=== PATIENT | male | born 1995 | race Caucasian/White ===

== ENCOUNTER 2017-01-26 02:56 | Emergency (ER) | payer BC ==
[2017-01-26] MEDS ORDERED: KETOROLAC TROMETHAMINE 30 MG/1 ML VIAL IVPUSH ONE (03:03)
--- NOTE | 2017-01-26 03:03 | PDOC ---
History of Present Illness - History of Present Illness Initial Comments: 01/26/17 04:03 The patient is a 21 year old male, with a significant past medical history of anxiety (on Clonazepam and recurrent shoulder dislocations,, who presents to the emergency department with right shoulder dislocation tonight. The patient complains of pain and inability to range his right upper extremity. He states his right upper extremity was pulled causing is to pop out. The patient states he has seen an orthopedist about his shoulder dislocations in the past and will follow-up with his orthopedist. He denies chest pain, shortness of breath, headache and dizziness. He denies fever, chills, nausea, vomit, diarrhea and constipation. He denies dysuria, frequency, urgency and hematuria. Allergies: NKDA Orthopedist: Dr. Henley <Steffanie Archer - Last Filed: 01/26/17 04:03> <Yessi Barcenas - Last Filed: 01/26/17 06:36> - General Stated Complaint: RIGHT SHOLDER DISLOCATION Time Seen by Provider: 01/26/17 02:59 Past History <Steffanie Archer - Last Filed: 01/26/17 04:03> <Yessi Barcenas - Last Filed: 01/26/17 06:36> - Past Medical History Allergies/Adverse Reactions: Allergies Allergy/AdvReac Type Severity Reaction Status Date / Time No Known Allergies Allergy Verified 01/26/17 03:13 Review of Systems - Review of Systems Able to Perform ROS?: Yes Comments:: 01/26/17 04:03 GENERAL/CONSTITUTIONAL: No fever or chills. No weakness. HEAD, EYES, EARS, NOSE AND THROAT: No change in vision. No ear pain or discharge. No sore throat. CARDIOVASCULAR: No chest pain or shortness of breath. RESPIRATORY: No cough, wheezing, or hemoptysis. GASTROINTESTINAL: No nausea, vomiting, diarrhea or constipation. GENITOURINARY: No dysuria, frequency, or change in urination. MUSCULOSKELETAL: (+) right shoulder pain s/p dislocation. No muscle swelling or pain. No neck or back pain. SKIN: No rash NEUROLOGIC: No headache, vertigo, loss of consciousness, or change in strength/ sensation. ENDOCRINE: No increased thirst. No abnormal weight change. HEMATOLOGIC/LYMPHATIC: No anemia, easy bleeding, or history of blood clots. ALLERGIC/IMMUNOLOGIC: No hives or skin allergy. <Steffanie Archer - Last Filed: 01/26/17 04:03> *Physical Exam - Vital Signs Last Vital Signs Temp Pulse Resp BP Pulse Ox 97.5 F L 94 H 19 104/68 100 01/26/17 03:13 01/26/17 03:53 01/26/17 03:53 01/26/17 03:53 01/26/17 03:53 - Physical Exam Comments: 01/26/17 04:04 GENERAL: (+) anxious. Awake, alert, and fully oriented, in no acute distress HEAD: No signs of trauma EYES: PERRLA, EOMI, sclera anicteric, conjunctiva clear ENT: Auricles normal inspection, hearing grossly normal, nares patent, oropharynx clear without exudates. Moist mucosa NECK: Normal ROM, supple, no lymphadenopathy, JVD, or masses LUNGS: Breath sounds equal, clear to auscultation bilaterally. No wheezes, and no crackles HEART: Regular rate and rhythm, normal S1 and S2, no murmurs, rubs or gallops ABDOMEN: Soft, nontender, normoactive bowel sounds. No guarding, no rebound. No masses EXTREMITIES: (+) right anterior shoulder joint dislocation. shoulder was reduced with success. no edema. No clubbing or cyanosis. No cords, erythema, or tenderness NEUROLOGICAL: Cranial nerves II through XII grossly intact. Normal speech, normal gait SKIN: Warm, Dry, normal turgor, no rashes or lesions noted. <Steffanie Archer - Last Filed: 01/26/17 04:03> Procedures - Joint Reduction Right Joint Reduction Site: right: Shoulder Pre-Procedure NV Exam: normal Conscious Sedation: Yes Anesthesia: Versed Amt. of medication administered: 4mg Procedure: Other (external rotation) Post-Procedure NV Exam: normal Complications: No Post Joint Reduction Film: joint reduced Immobilized: Yes <Yessi Barcenas - Last Filed: 01/26/17 06:36> ED Treatment Course - Medications Given in the ED: ED Medications Discontinued Medications Generic Name Dose Route Start Last Admin Trade Name Freq PRN Reason Stop Dose Admin Acetaminophen 1,000 mg 01/26/17 03:04 01/26/17 03:30 Ofirmev Injection - IVPB 01/26/17 03:05 1,000 mg ONCE ONE Administration Fentanyl 100 mcg 01/26/17 03:28 01/26/17 03:30 Sublimaze Injection - IVPUSH 01/26/17 03:29 100 mcg ONCE ONE Administration Ketorolac Tromethamine 30 mg 01/26/17 03:03 01/26/17 03:30 Toradol Injection - IVPUSH 01/26/17 03:04 30 mg ONCE ONE Administration Midazolam HCl 4 mg 01/26/17 03:28 01/26/17 03:30 Versed - IVPUSH 01/26/17 03:29 4 mg ONCE ONE Administration Sodium Chloride 1,000 ml 01/26/17 03:09 01/26/17 03:45 Normal Saline - IV 01/26/17 03:10 1,000 ml ONCE ONE Administration <Steffanie Archer - Last Filed: 01/26/17 04:03> *DC/Admit/Observation/Transfer - Attestations Scribe Attestion: 01/26/17 04:05 Documentation prepared by Steffanie Archer, acting as chief medical physicist for Yessi Barcenas MD <Steffanie Archer - Last Filed: 01/26/17 04:03> - Discharge Dispostion Admit: No <Yessi Barcenas - Last Filed: 01/26/17 06:36> Diagnosis at time of Disposition: Anterior shoulder dislocation - Discharge Dispostion Disposition: HOME Condition at time of disposition: Stable - Referrals Referrals: Krishan Cotto MD [Staff Physician] - - Patient Instructions Printed Discharge Instructions: DI for Shoulder Dislocation - Post Discharge Activity Work/School Note: Back to Work
[2017-01-26] MEDS ORDERED: ACETAMINOPHEN 1000 MG/100 ML VIAL (NON FORMULARY) IVPB ONE (03:04)
[2017-01-26] MEDS ORDERED: SODIUM CHLORIDE 0.9% 500 ML INFUS.BAG IV ONE (03:09)
[2017-01-26 03:16] VITALS: TEMP 97.5; BMI 24.3
[2017-01-26] MEDS ORDERED: MIDAZOLAM HCL 2 MG/2 ML SINGLE DOSE VIAL IVPUSH ONE (03:28)
[2017-01-26] MEDS ORDERED: MIDAZOLAM HCL 2 MG/2 ML SINGLE DOSE VIAL ONE (03:31)
[2017-01-26 04:06] VITALS: BP 104/68; PULSE 94
== END 2017-01-26 04:03 | disposition home or self-care (01) ==
LOC: JER 02:56
PROC: 3E033NZ Introduction of Analgesics, Hypnotics, Sedatives into Peripheral Vein, Percutaneous Approach (ICD-10-PCS; principal; 2017-01-26)
PROC: 3E0333Z Introduction of Anti-inflammatory into Peripheral Vein, Percutaneous Approach (ICD-10-PCS; 2017-01-26)
PROC: 3E033NZ Introduction of Analgesics, Hypnotics, Sedatives into Peripheral Vein, Percutaneous Approach (ICD-10-PCS; 2017-01-26)
PROC: 3E033NZ Introduction of Analgesics, Hypnotics, Sedatives into Peripheral Vein, Percutaneous Approach (ICD-10-PCS; 2017-01-26)
PROC: 0RSJXZZ Reposition Right Shoulder Joint, External Approach (ICD-10-PCS; 2017-01-26)
DX: M24.411 Recurrent dislocation, right shoulder (principal); X50.9XXA Other and unspecified overexertion or strenuous movements or postures, initial encounter; Y93.89 Activity, other specified; Y92.89 Other specified places as the place of occurrence of the external cause
CPT/HCPCS: 73030-TC-RT; 99282-25

== ENCOUNTER 2022-05-21 11:00 | Emergency (ER) | payer BC | END 2022-05-21 11:49 | disposition home or self-care (01) | LOC: JER 11:00 | PROC: 0RSKXZZ Reposition Left Shoulder Joint, External Approach (ICD-10-PCS; principal; 2022-05-21) | DX: S43.015A Anterior dislocation of left humerus, initial encounter (principal); X50.0XXA Overexertion from strenuous movement or load, initial encounter | CPT/HCPCS: 73030-TC-LT-FY; 99282-25 ==